=== PATIENT | male | born 1960 | race Caucasian/White ===

== ENCOUNTER 2016-04-27 11:19 | Emergency (ER) | payer MEDICAID, OTHER ==
[~2016-04-27] VITALS: Ht 185.4 cm; Wt 95.3 kg
[2016-04-27 11:25] VITALS: BP 135/96
[2016-04-27] MEDS ORDERED: IPRATROPIUM NEB FS 0.5 MG/2.5 ML AMPUL.NEB NEB ONE (11:30)
[2016-04-27] MEDS ORDERED: predniSONE 20 MG TABLET PO ONE (11:30)
[2016-04-27] MEDS ORDERED: ALBUTEROL FS 2.5 MG/3 ML VIAL.NEB NEB ONE (11:30)
[2016-04-27] MEDS ORDERED: IPRATROPIUM NEB FS 0.5 MG/2.5 ML AMPUL.NEB ONE (12:05)
[2016-04-27] MEDS ORDERED: ALBUTEROL FS 2.5 MG/3 ML VIAL.NEB ONE (12:05)
== END 2016-04-27 13:07 | disposition home or self-care (01) ==
LOC: ER 11:20
DX: J45.901 Unspecified asthma with (acute) exacerbation (principal); F10.20 Alcohol dependence, uncomplicated; F17.210 Nicotine dependence, cigarettes, uncomplicated
CPT/HCPCS: 71010; 94640; 99283; A4606; Z7610

== ENCOUNTER 2016-06-30 17:25 | Emergency (ER) | payer OTHER ==
[~2016-06-30] VITALS: Ht 182.9 cm; Wt 83.9 kg
[2016-06-30 17:40] VITALS: BP 126/71
== END 2016-06-30 18:00 | disposition left against medical advice (07) ==
LOC: ER 17:26
DX: J30.2 Other seasonal allergic rhinitis (principal); F17.200 Nicotine dependence, unspecified, uncomplicated
CPT/HCPCS: 99282; A4606; Z7610